=== PATIENT | female | born 1995 | race Caucasian/White ===

== ENCOUNTER 2017-02-08 01:05 | Emergency (ER) | payer MEDICAID ==
[~2017-02-08] VITALS: Ht 165.1 cm; Wt 103.0 kg
[2017-02-08 01:39] LABS: BILIRUBIN,URINE NEGATIVE (NEGATIVE); KETONES,URINE 1+ (NEGATIVE); LEUKOCYTE ESTERASE ,URINE 1+ (NEGATIVE); NITRITE,URINE NEGATIVE (NEGATIVE); PH,URINE 6 (5-9); PROTEIN,URINE NEGATIVE (NEGATIVE); UROBILINOGEN,URINE NORMAL (NORMAL)
--- NOTE | 2017-02-08 01:44 | ED GU-Female ---
General Chief Complaint: -Female Stated Complaint: PELVIC PRESSURE,17 WKS PREG Nursing Triage Note: PT TO ED 9 W/ FAMILY FOR C/O LOWER PELVIC PRESSURE ET PAIN ONSET YESTERDAY EVENING. DENIES VAG BLEEDING OR DISCHARGE. DOES REPORT HX OF SUBCHORIONIC BLEED AT 12 WKS. NO OTHER C/O VOICED Nursing Sepsis Screen: No Definite Risk Source: patient History of Present Illness Time seen by provider: 01:20 Initial Comments PT STATES SHE IS 18 WEEKS STATES TONIGHT WHILE SHE WAS WALKING AROUND [employer], SHE BEGAN TO HAVE ALOT OF LOWER ABDOMINAL /PELVIS PRESSURE AND PAIN--BEGAN AROUND [address] HAS NOT URINATED FOR AT LEAST 7 HOURS, BUT HAS NOT BEEN HAVING PAIN ON URINATION OR DIFFICULTY URINATING, JUST HASN'T DRANK MUCH LIQUID TODAY. NO VAGINAL BLEEDING OR DISCHARGE NO FEVER NO NAUSEA/VOMITING PT STATES SHE LIVES IN [place], AND WAS HERE IN [place] EARLIER TODAY, THEN WENT BACK HOME, AND THEN CAME BACK TO [place] THIS EVENING HAS NOT HAD ANY PROBLEMS ALL DAY LAST OB APPOINTMENT WAS 01/07/17 WITH A [facility] IN [place], [place] HAD A SUBCHORIONIC BLEED FOUND AT 12 WEEKS--DID NOT HAVE THESE SYMPTOMS AT THAT TIME. DENIES ANY OTHER PROBLEMS WITH THIS Allergies and Home Medications Allergies Coded Allergies: No Known Drug Allergies (Unverified , 02/08/17) Home Medications Nitrofurantoin Monohyd/M-Cryst 100 Mg Capsule, 100 MG PO BID, #20 Prescribed by: SUSHMA PERZAA on 02/08/17 0207 Constitutional: no symptoms reported Respiratory: no symptoms reported Cardiovascular: no symptoms reported Gastrointestinal: see HPI Genitourinary: see HPI : Yes (17 WEEKS) Musculoskeletal: no symptoms reported Skin: no symptoms reported Psychiatric/Neurological: No Symptoms Reported Endocrine: No Symptoms Reported Hematologic/Lymphatic: No Symptoms Reported Past Xgqawoz-Ujlpkh-Swlfjc Hx Patient Social History Alcohol Use: Denies Use Recreational Drug Use: No Smoking Status: Current Everyday Smoker Type Used: Cigarettes 2nd Hand Smoke Exposure: Yes Recent Foreign Travel: No Contact w/Someone Who Travel: No Recent Infectious Disease Expo: No Recent Hopitalizations: No Surgeries HX Surgeries: Yes (ABSCESS RIGHT NECK) Surgeries: Adenoidectomy, Section, Tonsillectomy Respiratory Hx Respiratory Disorders: No Cardiovascular Hx Cardiac Disorders: No Neurological Hx Neurological Disorders: No Reproductive System : Yes Hx : 2 Hx Para: 1 Hx Total # of Abortions (Spona: 0 Female Reproductive Disorders: Denies Genitourinary Hx Genitourinary Disorders: No Gastrointestinal Hx Gastrointestinal Disorders: No Musculoskeletal Hx Musculoskeletal Disorders: No Endocrine Hx Endocrine Disorders: No HEENT HX ENT Disorders: No Cancer Hx Cancer: No Psychosocial Hx Psychiatric Problems: No Integumentary HX Skin/Integumentary Disorder: Yes (ABSCESS TO RIGHT NECK) Blood Transfusions Hx Blood Disorders: No Physical Exam Vital Signs Vital Sign - Last 12Hours 02/08/17 01:14 Temp 98.9 Pulse 90 Resp 20 B/P (MAP) 122/71 Pulse Ox 99 O2 Delivery Room Air Capillary Refill : Less Than 3 Seconds General Appearance: WD/WN, no apparent distress, other (WALKS UPRIGHT AND MOVES QUICKLY WITHOUT DIFFICULTY. PT LAYING COMPELTELY STRETCHED OUT WITH ARMS OVER HEAD. DOES NOT APPEAR TO BE IN ANY DISCOMFORT WHATSOEVER. PT DOES NOT MAKE EYE CONTACT AT ALL--KEEPS HER ARM /HAND OVER BOTH OF HER EYES ) Gastrointestinal: normal bowel sounds, soft, no pulsatile mass, tenderness ( MILD SUPRAPUBIC TENDERNESS), other (GRAVID UTERUS WITH FUNDUS 2 FB'S BELOW UMBILICUS. FUNDUS IS NON-TENDER. ) Back: no CVA tenderness Progress/Results/Core Measures Results/Orders Lab Results Laboratory Tests Test 02/08/17 01:29 Range/Units Urine Color YELLOW Urine Clarity CLEAR Urine pH 6 5-9 Urine Specific Remlap 1.015 L 1.016-1.022 Urine Protein NEGATIVE NEGATIVE Urine Glucose (UA) NEGATIVE NEGATIVE Urine Ketones 1+ H NEGATIVE Urine Nitrite NEGATIVE NEGATIVE Urine Bilirubin NEGATIVE NEGATIVE Urine Urobilinogen NORMAL NORMAL MG/DL Urine Leukocyte Esterase 1+ H NEGATIVE Urine RBC (Auto) NEGATIVE NEGATIVE Urine RBC NONE /HPF Urine WBC 5-10 H /HPF Urine Squamous Epithelial Cells 2-5 /HPF Urine Crystals NONE /LPF Urine Bacteria MODERATE H /HPF Urine Casts NONE /LPF Urine Mucus LARGE H /LPF Urine Culture Indicated YES My Orders Orders - SUSHMA PERAZA DO Ua Culture If Indicated (02/08/17 01:22) Urine Culture (02/08/17 01:29) Rx-Nitrofurantoin [place] (Rx-Macrobid) (02/08/17 02:07) Vital Signs/I&O Vital Sign - Last 12Hours 02/08/17 01:14 Temp 98.9 Pulse 90 Resp 20 B/P (MAP) 122/71 Pulse Ox 99 O2 Delivery Room Air Blood Pressure Mean: 88 Progress Note : Progress Note FHR 154 AT DISMISSAL, PT NOW STATES SHE WAS DX WITH UTI AT LAST OB VISIT ON 01/07/17 AND GIVEN RX FOR KEFLEX BUT DID NOT TAKE IT. PT DOES NOT HAVE FOLLOW UP OB VISIT APPOINTMENT. STATES SHE IS IN PROCESS OF TRYING TO GET IN TO DR. GUERLINE AGUILA IN [place], BUT NO APPOINTMENT HAS BEEN MADE Departure Impression Impression: Primary Impression: UTI (urinary tract infection) in in second trimester Disposition: HOME, SELF-CARE Condition: Stable Departure-Patient Inst. Referrals: NO,LOCAL PHYSICIAN (PCP) Primary Care Physician Patient Instructions: Avoiding Infections in , Urinary Tract Infection , Adult (DC) Add. Discharge Instructions: LOTS OF CLEAR LIQUIDS--NO COFFEE, POP OR TEA TYLENOL NEEDED FOR PAIN FOLLOW UP WITH YOUR DR IN 3-4 DAYS FOR FURTHER CARE All discharge instructions reviewed with patient and/or family. Voiced understanding. Scripts Nitrofurantoin Monohyd/M-Cryst (Macrobid 100 mg Capsule) 100 Mg Capsule 100 MG PO BID, #20 CAP Prov: SUSHMA PERAZA DO 02/08/17 Images Torso/Trunk 1 - Mild, Tenderness SUSHMA PERAZA DO Feb 08, 2017 01:44
[2017-02-08] MEDS ORDERED: NITR-65 PO (02:07)
[2017-02-08] MEDS ORDERED: RX-NITROFURANTOIN 100 MG (MACROBID) CAP PPK#2 PO ONE (02:09)
[2017-02-08 02:16] VITALS: BP 115/64
[2017-02-08] MEDS: RX-NITROFURANTOIN 100 MG (MACROBID) CAP PPK#2 PO STA (02:16)
== END 2017-02-08 02:16 | disposition home or self-care (01) ==
LOC: EDUNIT# 01:05 → ER 01:11
DX: O23.42 Unspecified infection of urinary tract in pregnancy, second trimester (principal); Z3A.17 17 weeks gestation of pregnancy; O99.332 Smoking (tobacco) complicating pregnancy, second trimester; F17.210 Nicotine dependence, cigarettes, uncomplicated
CPT/HCPCS: 81000; 87088; 99283